=== PATIENT | female | born 1940 ===

== ENCOUNTER → 2016-04-12 | Outpatient (REF) | payer MEDICARE, OTHER ==
[~2016-04-12] MED LIST: /ATOR40TA OR; /ESOM40CA OR; /WARF5TA OR; ACET65TA OR; AVAP300T OR; BABY81CH OR; CRANPOW2 PO; ENOX40SY SC; INDAPAMIDE PO; LOZOL PO; METF500T4 OR; VITAMIN D 3 PO; [UNRECOGNIZED DRUG - OTHER] PO
== END ==
LOC: M LAB REF 12:19
PROVIDERS: ATTEND Internal Medicine
DX: R42 Dizziness and giddiness (principal); R41.3 Other amnesia

== ENCOUNTER → 2017-04-08 | Outpatient (REF) | payer MEDICARE, OTHER ==
[2017-04-08 18:50] LABS: VITAMIN B12 LEVEL 587 PG/ML
== END ==
LOC: M LAB REF 16:29
DX: G30.1 Alzheimer's disease with late onset (principal); F02.80 Dementia in other diseases classified elsewhere, unspecified severity, without behavioral disturbance, psychotic disturbance, mood disturbance, and anxiety
CPT/HCPCS: 82746

== ENCOUNTER → 2017-08-04 | Outpatient (REF) | payer MEDICARE, OTHER | LOC: M LAB REF 16:41 | DX: R35.1 Nocturia (principal) | CPT/HCPCS: 87086 ==

== ENCOUNTER → 2018-11-29 | Outpatient (REF) | payer MEDICARE, OTHER ==
[~2018-11-29] MED LIST changes: -/ATOR40TA OR; -/ESOM40CA OR; -/WARF5TA OR; +COUM1TAB17 OR; -ENOX40SY SC; +LIPI1TAB2 OR; +LOVE1INJ SC; +NEXI1CAP3 OR
[2018-11-29 13:03] LABS: INR 0.99; PROTHROMBIN TIME 12.8 SECONDS (11.8-14.0)
== END ==
LOC: M LAB REF 12:22
PROVIDERS: ATTEND Nurse Practitioner Adult Health
DX: Z51.81 Encounter for therapeutic drug level monitoring (principal); I82.509 Chronic embolism and thrombosis of unspecified deep veins of unspecified lower extremity

== ENCOUNTER → 2021-10-06 | Outpatient (REF) | payer MEDICARE, OTHER | LOC: M LAB REF 16:12 | PROVIDERS: ATTEND Physician Assistant Medical | DX: Z11.1 Encounter for screening for respiratory tuberculosis (principal) ==

== ENCOUNTER → 2021-10-23 | Outpatient (REF) | payer MEDICARE, OTHER ==
[2021-10-23 13:59] LABS: FOLATE 11.4 NG/ML
== END ==
LOC: M LAB REF 12:17
PROVIDERS: ATTEND Internal Medicine
DX: G30.1 Alzheimer's disease with late onset (principal)